=== PATIENT | female | born 1985 | race Caucasian/White ===

== ENCOUNTER 2016-09-24 18:37 | Emergency (ER) | payer OTHER ==
[~2016-09-24] VITALS: Ht 162.6 cm; Wt 66.7 kg
[~2016-09-24 18:37] MED LIST: BACTRIM DS 8001 TAB PO; CLARITIN10 MG PO; CLEOCIN HCL300 MG PO; CLONAZEPAM1 MG PO; IBUPROFEN800 M1 PO; MOTRIN 600 MG600 MG PO; MOTRIN 800MG T800 MG PO; MOTRIN600 MG PO; PERCOCET 325 MG1 TA2 PO; PROAIR HFA0.09 MG/Ac INH; RHINOCORT0.032 MG/2 NASB; TESSALON PERLE100 MG PO; TRAMADOL50 MG PO; ZITHROMAX Z-PA250 M1 PO
[2016-09-24 18:43] VITALS: BP 131/84
[2016-09-24] MEDS ORDERED: KLONOPIN1 M1 PO (19:09)
--- NOTE | 2016-09-24 19:10 | ED GENERAL ADULT ---
History of Present Illness General Chief Complaint: General Adult Stated Complaint: PT IS HAVING NUMBNESS OR WITHDRAWS ? Source: patient, old records Exam Limitations: no limitations Vital Signs & Intake/Output Vital Signs & Intake/Output Vital Signs Date Time Temp Pulse Resp B/P Pulse O2 O2 Flow FiO2 Ox Delivery Rate 09/24 1916 Room Air 09/24 1842 98.4 106 16 131/84 96 Room Air Allergies Coded Allergies: amoxicillin (From Augmentin) (Intermediate, RASH 10/20/15) clavulanic acid (From Augmentin) (Intermediate, RASH 10/20/15) Uncoded Allergies: SEASONAL (Mild, NASAL DISCHARGE 07/13/15) Reconcile Medications Albuterol Sulfate (Proair Hfa) 0.09 MG/Actuation LATASHA 1 PUFF INH 4 TIMES/DAY PRN DYSPNEA WITH SPACER Azithromycin (Zithromax Z-Phoenix) 250 MG CAP 1 DP PO AD SINUSITIS 2 the first day followed by 1 for days 2-5 Benzonatate (Tessalon Perle) 100 MG CAPSULE 1 CAP PO TID PRN COUGH Budesonide (Rhinocort Aqua) 0.032 MG/Actuation SPR 2 SPRAY NASB DAILY SINUSITIS CLINDAMYCIN HCL (Cleocin HCl) 300 MG CAPSULE 1 CAP PO TID CELLULITIS Clonazepam 1 MG TABLET 1 TAB PO BID DIRECTED (Reported) Clonazepam (Klonopin) 1 MG TABLET 1 TAB PO BIDP PRN ANXIETY Ibuprofen 800 MG TABLET 1 TAB PO TID PAIN Ibuprofen (Motrin 600 MG Tab) 600 MG TAB 600 MG PO Q6P PRN PAIN SCALE 3-4 Loratadine (Claritin) 10 MG TAB 1 TAB PO DAILY SINUSITIS OXYCODONE HCL/ACETAMINOPHEN (Percocet 5-325 MG Tablet) 325 MG/5 MG TAB 1 TAB PO Q4P PRN PAIN SCALE 7-8 OXYCODONE HCL/ACETAMINOPHEN (Percocet 5-325 MG Tablet) 325 MG/5 MG TAB 2 TAB PO Q4P PRN PAIN SCALE 9-10 Sulfamethoxazole/Trimethopri (Bactrim Ds 800 MG-160 MG) 1 TAB TAB 1 TAB PO BID TOE INFECTION TRAMADOL HCL (Tramadol) 50 MG TABLET 1 TAB PO Q6P PRN PAIN Yibuprofen (Motrin 800MG Tab) 800 MG TAB 800 MG PO Q6P PRN PAIN SCALE 4-6 Triage Note: PT TO TRIAGE WITH C/O HANDS AND FEET NUMBNESS, INSOMNIA, HEADACHES xWEEK. PT WAS ON KLONOPIN FOR ANXIETY FOR ?LONG TIME, STOPPED TAKING IT A WEEK AGO, AND DEVELOPED THE SIMPTOMS. NEUROS INTACT, VSS. Triage Nurses Notes Reviewed? yes Onset: Gradual Duration: week(s): (1), intermittent, waxing and waning Timing: recent history Injury Environment: home Severity: mild, moderate Severity Numbers: 5 No Modifying Factors: none Associated Symptoms: DENIES (INSOMNIA) : No Patient currently breastfeeds: No HPI: 31-year-old female history of anxiety presents emergency room complaining of bilateral hand and feet tingling associated with difficulty concentrating and difficulty sleeping for the past 1 week after she states she tapered herself off of her Klonopin which she was on 1 mg twice a day for the past several years. She states that her primary care physician informed her that she can no longer provide her with this medication. She states that she has been calling psychiatrist however none except her insurance area and she is unsure if the symptoms that she is having are attributed to her Klonopin withdrawal. She denies any chest pain patient changes shortness of breath nausea vomiting or abdominal pain no headaches is been no recent injury or trauma no neck or back pain \ (CARLOA ABDI) Past History Travel History Traveled to [place] past 21 day No Medical History Any Pertinent Medical History? 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 No (CAROLA ABDI) Review of Systems Review of Systems Constitutional: Reports: no symptoms, see HPI. All Other Systems: Reviewed and Negative Comments Review of systems: See HPI, All other systems negative. Constitutional, no chills no fever, no malaise HEENT: No visual changes no sore throat no congestion Cardiovascular: No chest pain , no palpitation Skin, no rashes, no change in skin Respiratory: No dyspnea no cough no sputum GI: No nausea no vomiting, no diarrhea, : No dysuria Muscle skeletal: No joint pain, no back pain, no neck pain, Neurologic: numbness no confusion, no headache Psych: No stress Heme/endocrine: No bruising no bleeding Immunology: No lymphadenopathy (CAROLA ABDI) Physical Exam Physical Exam General Appearance: well developed/nourished, no apparent distress, alert Comments: Well-developed well-nourished patient in no apparent distress. HEENT: Atraumatic, extraocular motion intact no nystagmus Neck: Supple, FROM, no lymphadenopathy Back: FROM, Nontender Cardiovascular: Regular rate and rhythms no murmurs rubs Respiratory: No respiratory distress. Patient speaking in full complete sentences. Breath sounds clear to auscultation bilaterally: NO W/R/R Shoulder: Atraumatic/Stable. FROM . Elbow: Atraumatic/stable. FROM. No laxity Upper arm/Forearm: Atraumatic. Nontender. 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 Skin intact. FROM Pulses: Normal/equal radial pulses bilaterally. Brisk cap refill Lower extremity: Full range of motion 5 out of 5 strength Neuro: Alert and oriented x3 Skin: Warm & dry;No appreciable rash on exposed skin Psych: Mood affect normal, normal memory normal judgment. Core Measures ACS in differential dx? No CVA/TIA Diagnosis: No Severe Sepsis Present: No Septic Shock Present: No (CAROLA ABDI) Progress Differential Diagnoses I considered the following diagnoses in my evaluation of the patient: Benzo withdrawal, paresthesia radiculopathy MS Plan of Care: Patient clinically appears well she will be provided with a one-week course of Klonopin I provided her with information for follow-up with a new primary care physician as well as [facility] patient clinically appears well with 5 out of 5 strength or no other symptoms she feels comfortable this plan I answered all her questions cleared for discharge Initial ED EKG: none (CAROLA ABDI) Departure Departure Time of Disposition: 1906 Disposition: HOME OR SELF CARE Condition: Stable Clinical Impression Primary Impression: Benzodiazepine withdrawal Referrals: Maye JOSEPH MD,VALERIA GASPAR MD,KIARA Dotson (PCP/Family) Additional Instructions: KLONOPIN DIRECTED. FOLLOW UP WITH PMD DR [facility]. THIS WAS SENT TO YOUR PHARMACY Departure Forms: Customer Survey General Discharge Information Prescriptions: Current Visit Scripts Clonazepam (Klonopin) 1 TAB PO BIDP PRN ANXIETY #14 TAB (CAROLA ABDI) PA/CLOUD CONSULTANT Co-Sign Statement Statement: ED Attending supervision documentation- [] I saw and evaluated the patient. I have also reviewed all the pertinent lab results and diagnostic results. I agree with the findings and the plan of care as documented in the PA's/CLOUD CONSULTANT's documentation. x I have reviewed the ED Record and agree with the PA's/CLOUD CONSULTANT's documentation. [] Additions or exceptions (if any) to the PAs/CLOUD CONSULTANT's note and plan are summarized below: [] (CODY GABRIEL MD) Critical Care Note Critical Care Note Critical Care Time: non-applicable (CAROLA ABDI)
== END 2016-09-24 19:19 ==
LOC: ERH 18:37
DX: F13.239 Sedative, hypnotic or anxiolytic dependence with withdrawal, unspecified (principal)

== ENCOUNTER 2018-03-05 18:37 | Emergency (ER) | payer OTHER ==
[~2018-03-05] VITALS: Ht 162.6 cm; Wt 72.6 kg
[~2018-03-05 18:37] MED LIST changes: +KLONOPIN1 M1 PO
[2018-03-05 19:00] LABS: ABSOLUTE BASOPHIL COUNT 0.1 /CUMM (0.0-0.2); ABSOLUTE EOSINOPHIL COUNT 0.1 /CUMM (0.0-0.7); ABSOLUTE MONOCYTE COUNT 0.7 /CUMM (0.10-0.60); BASOPHIL % 0.5 % (0.0-2.0); EOSINOPHIL % 0.6 % (0-5); GRANULOCYTE % 61.1 % (42.2-75.2); HEMATOCRIT 35.6 % (37-47); MEAN CORPUSCULAR HGB 28.3 PG (27.0-31.0); MEAN CORPUSCULAR HGB CONC 33.8 G/DL (33.0-37.0); MEAN CORPUSCULAR VOLUME 83.6 FL (81.0-99.0); MEAN PLATELET VOLUME 8.6 FL (7.4-10.4); PLATELET COUNT 405 /CUMM (130-400); RBC DISTRIBUTION WIDTH 13.4 % (11.5-14.5); RED BLOOD CELL CT 4.26 /CUMM (4.20-5.40); WHITE BLOOD CELL COUNT 11.2 /CUMM (4.8-10.8)
[2018-03-05 19:01] LABS: ABSOLUTE GRANULOCYTE CT 6.8 /CUMM (1.4-6.5); ABSOLUTE LYMPH COUNT 3.6 /CUMM (1.2-3.4)
--- NOTE | 2018-03-05 20:30 | ED PSYCHIATRIC COMPLAINT ---
History of Present Illness General Chief Complaint: General Adult Stated Complaint: SOB, ?ANXIETY PER PT Source: patient Exam Limitations: no limitations Vital Signs & Intake/Output Vital Signs & Intake/Output Vital Signs Date Time Temp Pulse Resp B/P B/P Pulse O2 O2 Flow FiO2 Mean Ox Delivery Rate 03/05 1952 Room Air 03/05 1840 98.6 80 18 119/81 97 Room Air Allergies Coded Allergies: amoxicillin (From Augmentin) (Intermediate, RASH 10/20/15) clavulanic acid (From Augmentin) (Intermediate, RASH 10/20/15) Uncoded Allergies: SEASONAL (Mild, NASAL DISCHARGE 07/13/15) Reconcile Medications Albuterol Sulfate (Proair Hfa) 0.09 MG/Actuation LATASHA 1 PUFF INH 4 TIMES/DAY PRN DYSPNEA WITH SPACER Azithromycin (Zithromax Z-Phoenix) 250 MG CAP 1 DP PO AD SINUSITIS 2 the first day followed by 1 for days 2-5 Benzonatate (Tessalon Perle) 100 MG CAPSULE 1 CAP PO TID PRN COUGH Budesonide (Rhinocort Aqua) 0.032 MG/Actuation SPR 2 SPRAY NASB DAILY SINUSITIS CLINDAMYCIN HCL (Cleocin HCl) 300 MG CAPSULE 1 CAP PO TID CELLULITIS Clonazepam 1 MG TABLET 1 TAB PO BID DIRECTED (Reported) Clonazepam (Klonopin) 0.5 MG TABLET 1 TAB PO BIDP PRN anxiety Clonazepam (Klonopin) 1 MG TABLET 1 TAB PO BIDP PRN ANXIETY Ibuprofen 800 MG TABLET 1 TAB PO TID PAIN Ibuprofen (Motrin 600 MG Tab) 600 MG TAB 600 MG PO Q6P PRN PAIN SCALE 3-4 Loratadine (Claritin) 10 MG TAB 1 TAB PO DAILY SINUSITIS OXYCODONE HCL/ACETAMINOPHEN (Percocet 5-325 MG Tablet) 325 MG/5 MG TAB 1 TAB PO Q4P PRN PAIN SCALE 7-8 OXYCODONE HCL/ACETAMINOPHEN (Percocet 5-325 MG Tablet) 325 MG/5 MG TAB 2 TAB PO Q4P PRN PAIN SCALE 9-10 Sulfamethoxazole/Trimethopri (Bactrim Ds 800 MG-160 MG) 1 TAB TAB 1 TAB PO BID TOE INFECTION TRAMADOL HCL (Tramadol) 50 MG TABLET 1 TAB PO Q6P PRN PAIN Yibuprofen (Motrin 800MG Tab) 800 MG TAB 800 MG PO Q6P PRN PAIN SCALE 4-6 Triage Note: 32 YO FEMALE TO TRIAGE FOR EVAL OF SOB AND TINGLING IN BILATERAL HANDS ON/OFF FOR A COUPLE DAYS. STATES SHE USED TO TAKE MEDICATION FOR ANXIETY BUT HER DR WASNT ABLE TO PERSCRIBE HER MEDS ANYMORE. RA SATS 97% Triage Nurses Notes Reviewed? yes : No Patient currently breastfeeds: No HPI: Patient presents for evaluation of episodes of shortness of breath and tingling of the hands and feet that occurred repeatedly and intermittently since Monday. Patient states she has a history of anxiety (since she was in her early teens) and has been taking Klonopin for many years. She states her primary care doctor lost his ability to prescribe Klonopin and instead she was prescribed hydroxyzine. This has provided her no relief of symptoms. Patient states that the symptoms have been severe at times. Nothing seems to make her feel better. Past History Travel History Traveled to [place] past 21 day No Medical History Any Pertinent Medical History? 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 No Review of Systems Review of Systems Constitutional: Reports: no symptoms. EENTM: Reports: no symptoms. Respiratory: Reports: see HPI. Cardiovascular: Reports: no symptoms. GI: Reports: no symptoms. Genitourinary: Reports: no symptoms. Musculoskeletal: Reports: no symptoms. Skin: Reports: no symptoms. Neurological/Psychological: Reports: see HPI. Hematologic/Endocrine: Reports: no symptoms. Immunologic/Allergic: Reports: no symptoms. All Other Systems: Reviewed and Negative Physical Exam Physical Exam General Appearance: see below Neurological/Psychiatric: see below Comments: Gen.: Well-nourished, well-developed, no acute respiratory distress. Head: Normocephalic, atraumatic. Eyes: Normal inspection bilaterally Ears: Normal inspection bilaterally Nose: Normal inspection Throat/mouth : Moist mucosa Neck: Supple, full range of motion, no goiter Heart: Regular rate and rhythm, no murmurs rubs or gallops Lungs: Clear to auscultation bilaterally with normal air entry Chest: Nontender Back: Normal range of motion Abdomen: Soft, nontender, nondistended, normal bowel sounds Extremities: Normal range of motion grossly, equal radial pulses, no cyanosis clubbing or edema Neurologic: Cranial nerves grossly intact, speech is clear Skin: warm and dry Psychiatric: Calm, cooperative, no apparent delusions or hallucinations SAD PERSONS Done? patient not suicidal Progress Differential Diagnosis: asthma,aspiration,pneumonia,anxiety,acs Plan of Care: Orders Procedure Date/time Status XRY-CHEST XRAY, TWO VIEWS 03/05 1840 Active TROPONIN LEVEL 03/05 1840 Active HUMAN BETA HCG SCREEN 03/05 1840 Active COMPREHENSIVE METABOLIC PANEL 03/05 1840 Active CBC WITHOUT DIFFERENTIAL 03/05 1840 Complete EKG 03/05 1840 Active Laboratory Tests 03/05/181854: Anion Gap 9, Estimated GFR > 60, BUN/Creatinine Ratio 16.7, Glucose 89, Calcium 10.0, Total Bilirubin < 0.1 L, AST 22, ALT 29, Alkaline Phosphatase 70, Troponin I < 0.01, Total Protein 7.7, Albumin 4.5, Globulin 3.2, Albumin/ Globulin Ratio 1.4, Total Beta HCG Pending, CBC w Diff NO MAN DIFF REQ, RBC 4.26 , MCV 83.6, MCH 28.3, MCHC 33.8, RDW 13.4, MPV 8.6, Gran % 61.1, Lymphocytes % 31.7, Monocytes % 6.1, Eosinophils % 0.6, Basophils % 0.5, Absolute Granulocytes 6.8 H, Absolute Lymphocytes 3.6 H, Absolute Monocytes 0.7 H, Absolute Eosinophils 0.1, Absolute Basophils 0.1 Departure Departure Disposition: HOME OR SELF CARE Condition: Stable Clinical Impression Primary Impression: Anxiety Referrals: Manda DAVIS,Kaveh Dotson (PCP/Family) Additional Instructions: Klonopin as prescribed for anxiety. Follow-up with Dr. CRANE for reevaluation this week (this medication is not intended for long-term control). Return if any concerns or sudden worsening. Thank you for choosing the [facility] Emergency Department for your care. It was a pleasure to serve you today. Francisco Cervantes M.D. [facility] Departure Forms: Customer Survey General Discharge Information Prescriptions: Current Visit Scripts Clonazepam (Klonopin) 1 TAB PO BIDP PRN anxiety #14 TAB
[2018-03-05] MEDS ORDERED: KLONOPIN0.5 M1 PO (20:31)
[2018-03-05 20:48] VITALS: BP 122/88
== END 2018-03-05 20:49 ==
LOC: ERH 18:37
PROVIDERS: Physician Assistant
DX: F41.9 Anxiety disorder, unspecified (principal)
CPT/HCPCS: 93005; 93010